=== PATIENT | male | born 1950 | race Asian ===

== ENCOUNTER → 2019-07-18 | Day surgery (SDC) | payer OTHER ==
[2019-07-18 10:29] LABS: BASO % 0.5 % (0-2.0); HEMATOCRIT 41.4 % (35.4-49); HEMOGLOBIN 13.9 GM/dL (11.7-16.9); LYMPH % 23.3 % (8-40); MCH 29.3 pg (25.7-33.7); MCHC 33.6 g/dl (32.0-35.9); MEAN CELL VOLUME 87.2 fl (80-96); MONO % 6.5 % (3.8-10.2); NEUT % 68.7 % (42.8-82.8); PLATELET COUNT 225 K/MM3 (134-434); RBC 4.75 M/mm3 (4.00-5.60); RDW 13.8 % (11.9-15.9); WHITE BLOOD COUNT 6.2 K/mm3 (4.0-10.0)
[2019-07-18 10:34] LABS: EPI CELLS 0.5 /HPF (0-5/HPF); HYALINE CASTS 2 /lpf (0-8); URINE APPEARANCE CLEAR; URINE BACTERIA 0 /hpf (NEGATIVE); URINE BILIRUBIN NEGATIVE (NEGATIVE); URINE COLOR YELLOW; URINE GLUCOSE (UA) NEGATIVE (NEGATIVE); URINE KETONE NEGATIVE (NEGATIVE); URINE LEUK ESTERASE NEGATIVE (NEGATIVE); URINE NITRITE NEGATIVE (NEGATIVE); URINE PROTEIN NEGATIVE (NEGATIVE); URINE RBC 5 /hpf (0-4); URINE UROBILINOGEN 0.2 mg/dL (0.2-1.0); URINE WBC 1 /hpf (0-5)
[2019-07-18 11:15] LABS: ALBUMIN 3.9 g/dl (3.4-5.0); BILIRUBIN,TOTAL 0.6 mg/dL (0.2-1); BLOOD UREA NITROGEN 16.2 mg/dL (7-18); CALCIUM 9.4 mg/dL (8.5-10.1); CREATININE 0.8 mg/dL (0.55-1.3); POTASSIUM 4.1 mmol/L (3.5-5.1); TOT PROT 7.2 g/dl (6.4-8.2)
--- NOTE | 2019-07-20 11:48 | PATH ---
Cytology Non-Gynecological Report Patient Name: KAYLIE RUBY [facility]. Rec. #: [id number] /Age/Gender: 1950 (Age: 68) / M Account: [id number] Location: RADIOLOGY [facility] Taken: 07/18/2019 Received: 07/18/2019 Reported: 07/20/2019 Physicians: Elsie Benitez M.D. Specimen(s) Received THYROID FNA Clinical History Thyroid nodule, 3.42 x 2.30 x 2.39 cm Final Diagnosis THYROID, FINE NEEDLE ASPIRATION: SATISFACTORY FOR EVALUATION. B[place]ES[place] III: ATYPIA OF UNDERTERMINED SIGNIFICANCE/FOLLICULAR LESION OF UNDETERMINED SIGNIFICANCE. ATYPICAL FOLLICULAR CELLS WITH MILD NUCLEAR ENLARGEMENT, SUBTLE NUCLEAR GROOVES, AND FOCAL CROWDING DISPERSED CELLULAR AGGREGATES, TRABECULAR FRAGMENTS, AND MICROFOLLICLES IN A BACKGROUND OF SOME COLLOID AND SMALL FOLLICULAR CELLS. Comment: Suggest clinical/radiologic correlation and repeat sampling after an appropriate interval (3-6 months) with material for molecular studies (e.g.Thyroseq), as clinically warranted. Electronically Signed [place] M.D. Gross Description Received are eight direct smears, four of which are air-dried and Diff-Quik stained, and four of which are alcohol fixed and Pap stained. Also received is 20 ml of bloody formalin from which one cellblock is prepared.
== END | disposition home or self-care (01) ==
LOC: JRADUS-SUR 09:07
PROVIDERS: ATTEND Internal Medicine Endocrinology, Diabetes & Metabolism
PROC: 0G9K3ZX Drainage of Thyroid Gland, Percutaneous Approach, Diagnostic (ICD-10-PCS; principal; 2019-07-18)
DX: D44.0 Neoplasm of uncertain behavior of thyroid gland (principal)
CPT/HCPCS: 36415; 76942; 80053; 81003; 82306; 83036; 84436; 84443; 85025; 86800; 88173; 88305-TC